=== PATIENT | male | born 1960 | race Caucasian/White ===

== ENCOUNTER 2016-11-20 11:40 | Emergency (ER) | payer OTHER ==
[2016-11-20] MEDS ORDERED: ASPIRIN 81 MG CHEW TABLET As Ordered ONE (12:26)
[2016-11-20 12:37] LABS: BASO # 0.1 K/mm3 (0.0-0.2); BASO % 0.7 % (0.0-1.0); EOS # 0.2 K/mm3 (0.0-0.50); EOS % 2.1 % (0.0-3.0); LARGE UNSTAINED CELL # 0.2 K/mm3 (0.0-0.4); LARGE UNSTAINED CELL % 2.3 % (0.0-4.0); LYMPH # 1.7 K/mm3 (1.5-4.5); LYMPH % 21.1 % (24.0-44.0); MEAN CORPUSCULAR HEMOGLOBIN 32.3 pg (27.0-33.0); MEAN CORPUSCULAR HGB CONC 34.8 g/dl (32.0-36.5); MONO # 0.4 K/mm3 (0.0-0.8); MONO % 4.4 % (0.0-5.0); NEUTROPHILS # 5.5 K/mm3 (1.8-7.7); NEUTROPHILS % 69.4 % (36.0-66.0); PLATELET COUNT, AUTOMATED 206 k/mm3 (150-450); RED CELL DISTRIBUTION WIDTH 13.1 % (11.5-14.5); WHITE BLOOD COUNT 7.9 K/mm3 (4.0-10.0)
[2016-11-20 12:48] LABS: ALBUMIN 4.3 GM/DL (3.2-5.2); ALKALINE PHOSPHATASE 54 U/L (45-117); ALT/SGPT 46 U/L (12-78); ANION GAP 10 MEQ/L (8-16); AST/SGOT 27 U/L (15-37); BILIRUBIN,DIRECT 0.2 MG/DL (0.0-0.2); BILIRUBIN,TOTAL 0.7 MG/DL (0.2-1.0); BLOOD UREA NITROGEN 12 MG/DL (7-18); CALCIUM LEVEL 9.2 MG/DL (8.5-10.1); CARBON DIOXIDE LEVEL 28 MEQ/L (21-32); CHLORIDE LEVEL 104 MEQ/L (98-107); CREATININE FOR GFR 0.85 MG/DL (0.70-1.30); GLOMERULAR FILTRATION RATE > 60.0 (>56); GLUCOSE, FASTING 104 MG/DL (70-105); POTASSIUM SERUM 3.8 MEQ/L (3.5-5.1); SODIUM LEVEL 142 MEQ/L (136-145); TOTAL PROTEIN 7.6 GM/DL (6.4-8.2)
--- NOTE | 2016-11-20 13:31 | REP ---
SINGLE VIEW CHEST: There is no evidence of acute infiltrate. No pleural effusion is seen. The heart is normal in size. The mediastinal silhouette is unremarkable. The visualized osseous structures are intact. IMPRESSION: No acute pulmonary disease. Signed by Luis A Valenzuela MD 11/20/2016 04:59 P
--- NOTE | 2016-11-20 17:56 | EDDOCDS ---
Physician Documentation [facility] Name: Ricardo Haines Age: 56 yrs Sex: Male : 1960 Arrival Date: 11/20/2016 Time: 11:40 Bed 17 Private MD: Disposition: 11/20 16:59 Critical Care: Critical care not applicable. pc Disposition: 11/20/16 17:24 Discharged to Home/Self Care. Impression: Chest pain, unspecified. - Condition is Stable. - Discharge Instructions: Nonspecific Chest Pain. - Medication Reconciliation, Local Pharmacy Hours form. - Follow up: Farhad Pickering; When: December 01 at 12:30pm. Call tomorrow for more pre-appointment information . - Problem is new. - Symptoms have improved. HPI: 12:41 This 56 yrs old Male presents to ER via Wheelchair with complaints of Chest pc Tightness. 12:41 The history is obtained from the patient. Symptoms began suddenly yesterday, He had pc multiple brief, 4-5 second episodes, of chest tightness yesterday, while at rest, with increase in frequency or severity while walking or with exertion. He believes the ongoing family stressors of both his father and his 's father being very ill, and the associated lack of sleep and worry, has caused the symptoms. He slept fine last night and took his dog for a 30 minute walk through the barber today and felt fine, but when he got back, he noted a heaviness in his chest, starting at 10:30am, and it has persisted until now, although lessening over time. He denies any other associated symptoms . The pain does not radiate. The symptoms are aggravated by nothing. The symptoms are alleviated by nothing. The patient's known risk factors for coronary artery disease include: smoking cigarettes, a family history of coronary artery disease. The patient has not experienced similar symptoms in the past. The patient has not recently seen a physician. Historical: - Allergies: no known allergies; - Home Meds: 1. aspirin 162 mg Oral TbEC 1 tab once daily (Last dose: 11/20/2016 08:00) 2. [place] Mclaughlin 500 mg oral cap daily 3. Magnesium Oxide Unknown Oral Unknown nightly 4. Vitamin C 1,000 mg Oral tab 1,000 mg daily - PMHx: none; - PSHx: left knee surgery; Laminectomy. lumbar; Appendectomy; - The history from nurses notes was reviewed: and I agree with what is documented. - Social history: Smoking status: Patient uses tobacco products, current some day smoker. No barriers to communication noted, The patient speaks fluent Maltese, Speaks appropriately for age. - Family history: Not pertinent, Pertinent for Father has/had cardiac disorder. - : The pt / caregiver states he / she is not on anticoagulants. Home medication list is obtained from the patient. - Hospitalizations: : No recent hospitalization is reported. - Exposure Risk Screening:: None identified. - Immunization history:: All immunizations up-to-date. - Social history:: the patient smokes cigarettes the patient drinks alcohol. ROS: 12:45 All systems are negative except as listed. The cardiovascular, respiratory, pc gastrointestinal and neurological components are also addressed in the HPI. Exam: 12:45 General Appearance: alert, no acute distress. pc 12:45 ENT: ear, nose and throat normal, pharynx normal. 12:45 Neck: supple, non-tender, no masses are appreciated. 12:45 Respiratory: no respiratory distress, normal breath sounds. 12:45 Cardiovascular: regular pulse rate, regular heart rhythm, normal heart sounds, equal and full pulses bilaterally. 12:45 Abdomen: soft, non-tender, no organomegaly, normal bowel sounds. 12:45 Skin: skin color is normal, warm, dry. 12:45 Extremities: The extremities have a grossly normal appearance, are non-tender, without acute ROM abnormalities. 12:45 Neuro: alert, oriented to person, place and time, cranial nerves normal as tested, no motor deficits, no sensory deficits. 12:45 Psych: normal mood. Vital Signs: 11:43 BP 204 / 109; Pulse 112; Resp 16; Temp 97.3(O); Pulse Ox 100% on R/A; Weight 86.18 kg / lr2 189.99 lbs (R); Height 5 ft. 10 in. (177.80 cm) (R); Pain 2/10; 12:08 BP 171 / 107 (auto/); bcj 12:08 Pulse Ox 97% ; bcj 12:12 BP 152 / 86 LA Sitting (man/); srm 12:15 BP 180 / 107 (auto/); bcj 12:15 Pulse 107 MON; Pulse Ox 96% ; bcj 12:30 BP 172 / 93 (auto/); bcj 12:30 Pulse 107 MON; Pulse Ox 98% ; bcj 12:45 BP 156 / 90 (auto/); bcj 12:45 Pulse 99 MON; Pulse Ox 97% ; bcj 13:00 BP 150 / 87 (auto/); bcj 13:00 Pulse 103 MON; bcj 13:15 BP 152 / 95 (auto/); bcj 13:15 Pulse 101 MON; Pulse Ox 95% ; bcj 13:30 BP 145 / 84 (auto/); bcj 13:30 Pulse Ox 97% ; bcj 13:45 BP 143 / 81 (auto/); bcj 13:45 Pulse Ox 99% ; bcj 14:00 BP 138 / 73 (auto/); bcj 14:00 Pulse Ox 95% ; bcj 17:46 BP 151 / 82; Pulse 93; Resp 16; Temp 97.9(O); Pulse Ox 98% on R/A; Pain 0/10; ld5 11:43 Body Mass Index 27.26 (86.18 kg, 177.80 cm) lr2 MDM: 11:46 ECG WITH READING ER PHYS+CARDIAG ordered. EDMS 12:24 Aspirin Chewable Tablet 324 mg PO once ordered. pc 12:24 Central Office Frame Wirer/Pulse Ox/q 30 min VS ordered. pc 12:24 IV Saline Lock ordered. pc 12:24 Rhythm Strip to chart ordered. pc 12:25 Basic Metabolic Profile Ordered. EDMS 12:25 CBC with Diff Ordered. EDMS 12:25 Cardiac Injury Profile Ordered. EDMS 12:25 Troponin Ordered. EDMS 12:26 portable chest Ordered. EDMS 12:32 LIPASE Ordered. EDMS 12:32 LIVER PROFILE Ordered. EDMS 12:32 REGULAR+DIET ordered. EDMS 12:45 Differential diagnosis: anxiety, gastroesophageal reflux disease (GERD), pancreatitis, pc unstable angina. Plan: labs, EKG, meds, imaging. The patient was medicated with aspirin in the Emergency Department. Test interpretation: EKG. 12:46 Financial registration complete. lg 13:03 CBC with Diff Reviewed. pc 13:03 Cardiac Injury Profile Reviewed. pc 13:03 Basic Metabolic Profile Reviewed. pc 13:03 Troponin Reviewed. pc 13:03 LIPASE Reviewed. pc 13:03 LIVER PROFILE Reviewed. pc 13:27 [facility] Payment Agreement was scanned into [employer] and attached to record. lg 14:08 Repeat EKG (put time details section) ordered. pc 14:13 Repeat EKG (put time details section) complete. deg 14:14 ECG WITH READING ER PHYS ordered. EDMS 14:36 Redraw CIP &Troponin (put time in details section) ordered. pc 15:12 CARDIAC MARKER PANEL Ordered. EDMS 16:30 CARDIAC MARKER PANEL Reviewed. pc 16:30 portable chest Reviewed. pc 16:32 Redraw CIP &Troponin (put time in details section) complete. bcj 16:39 Data reviewed: old medical records, vital signs, nurses notes, EKG(s), lab test pc results, all radiology studies and available results. Test interpretation: LAB - all labs as ordered have been reviewed, interpreted and considered in the overall management of the clinical presentation; X-RAY - interpreted by Radiologist and personally reviewed, 1 view chest no acute disease. 16:39 Test interpretation: EKG. pc 16:59 The patient has been re-examined and re-evaluated. The clinical presentation did not pc require any ED treatment or interventions. Physician consultation: Dr. Farhad Pickering was contacted at 17:00, regarding patient's condition, and advises the medications/treatment as provided. and agrees with the treatment provided and advises the discharge plans as outlined. Disposition: The historical points, examination findings, and any diagnostic results supporting the provided diagnosis, were discussed with the patient or legal guardian. The need for outpatient follow up with the provider listed on their discharge instructions was discussed. They were encouraged to return to [facility], or the nearest ED, if symptoms worsen/persist, or for any other questions/concerns. EC:45 Rate is 110 beats/min. Rhythm is regular, Sinus tachycardia. QRS [place] is Normal. IA pc interval is normal. QRS interval is normal. QT interval is normal. No Q waves. T waves are Normal. No ST changes noted. Clinical impression: Sinus tachycardia. 16:39 Rate is 71 beats/min. Rhythm is regular, Normal Sinus Rhythm. QRS [place] is Normal. IA pc interval is normal. QRS interval is normal. QT interval is normal. No Q waves. T waves are Normal. No ST changes noted. Clinical impression: Normal Sinus Rhythm. Administered Medications: 12:28 Drug: Aspirin 324 mg [aspirin 81 mg chewable tablet (4 tabs)] Route: PO; srm Signatures: Dispatcher [employer] EDMS Melvin Beavers MD MD pc Sheri Katz, Manga Artist Unit deg Nima Perez, RN RN Ally Ratliff, Rachel Parker lgRN Bryanna Porter RN The chart was reviewed and I authenticate all verbal orders and agree with the evaluation and treatment provided.Corrections: (The following items were deleted from the chart) 12:31 12:26 LIPASE+LAB ordered. EDMS EDMS 12:31 12:26 LIVER PROFILE+LAB ordered. EDMS EDMS 12:45 12:41 The patient's known risk factors for coronary artery disease include: a family pc history of coronary artery disease, pc 14:35 14:08 Redraw ABG (put time in details section) ordered. pc pc 14:38 14:14 ARTERIAL BLOOD GAS ordered. EDMS EDMS Attachments: 13:27 [facility] Payment Agreement lg MTDD
--- NOTE | 2016-11-20 17:56 | EDDOCDS ---
Nurse's Notes [facility] Name: Ricardo Haines Age: 56 yrs Sex: Male : 1960 Arrival Date: 11/20/2016 Time: 11:40 Bed 17 Private MD: Diagnosis: Chest pain, unspecified Presentation: 11/20 11:46 Presenting complaint: Patient states: chest tightness that started last night. Pt dsf states it went away last night and came back an hour ago. Pt denies nausea and SOB. 81 mg this AM. Adult Sepsis Screening: The patient does not have new or worsening altered mentation. Patient's respiratory rate is less than 22. Systolic blood pressure is greater than 100. Patient has a qSOFA score of 0- Negative Sepsis Screen. Suicide/Homicide risk assessment- the patient denies having any suicidal and/or homicidal ideations and does not present with any other emotional, behavioral or mental health complaints. 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 Transition of care: patient was not received from another setting of care. 11:46 Acuity: ROGERS Level 2 dsf 11:46 Method Of Arrival: Wheelchair dsf Triage Assessment: 11:49 General: Appears in no apparent distress, Behavior is appropriate for age, cooperative. dsf Pain: Location: chest Pain currently is 3 out of 10 on a pain scale. Pain does not radiate. Quality of pain is described as heavy, Pain began 1 day ago. Pt Declines HIV testing. Cardiovascular: Chest pain is described as Pain is 3 out of 10 on a pain scale. quality is heaviness, is located in right left anterior chest wall radiates Does not radiate. episodes are intermittent began 1 day ago. GI: Denies nausea. Historical: - Allergies: no known allergies; - Home Meds: 1. aspirin 162 mg Oral TbEC 1 tab once daily (Last dose: 11/20/2016 08:00) 2. [place] Mclaughlin 500 mg oral cap daily 3. Magnesium Oxide Unknown Oral Unknown nightly 4. Vitamin C 1,000 mg Oral tab 1,000 mg daily - PMHx: none; - PSHx: left knee surgery; Laminectomy. lumbar; Appendectomy; - The history from nurses notes was reviewed: and I agree with what is documented. - Social history: Smoking status: Patient uses tobacco products, current some day smoker. No barriers to communication noted, The patient speaks fluent Norwegian, Speaks appropriately for age. - Family history: Not pertinent, Pertinent for Father has/had cardiac disorder. - : The pt / caregiver states he / she is not on anticoagulants. Home medication list is obtained from the patient. - Hospitalizations: : No recent hospitalization is reported. - Exposure Risk Screening:: None identified. - Immunization history:: All immunizations up-to-date. - Social history:: the patient smokes cigarettes the patient drinks alcohol. Screenin:01 Screening information is obtained from the patient. Fall risk: No risks identified. bcj Assistance ADL's: requires no assistance with activities of daily living. Abuse/DV Screen: The patient / caregiver reports he/she is: not in a situation that causes fear, pain or injury. Nutritional screening: No deficits noted. Advance Directives: Currently, there is no health care proxy. home support is adequate. Assessment: 12:01 General: Appears in no apparent distress, comfortable, Behavior is cooperative. Pain: bcj Denies pain. Neurological: Level of Consciousness is awake, alert, Oriented to person, place, time. Cardiovascular: Rhythm is sinus rhythm Chest pain is described as mild, quality is squeezing, is located in left anterior chest wall radiates Does not radiate. episodes last > 5 minutes began 4 hours prior to arrival. Respiratory: Airway is patent Respiratory effort is even, unlabored, Respiratory pattern is regular. Derm: Skin is pink, warm & dry. 13:34 General: Appears in no apparent distress, comfortable, Behavior is cooperative. Pain: bcj Denies pain. Cardiovascular: Rhythm is sinus rhythm. Derm: Skin is pink, warm & dry. 14:23 General: Appears in no apparent distress, comfortable, Behavior is cooperative. Pain: bcj Denies pain. Cardiovascular: Rhythm is sinus rhythm. Derm: Skin is pink, warm & dry. 15:26 General: Appears in no apparent distress, comfortable, Behavior is cooperative. Pain: bcj Denies pain. Cardiovascular: Rhythm is regular. Derm: Skin is pink, warm & dry. 16:33 General: Appears in no apparent distress, comfortable, Behavior is cooperative. Pain: bcj Denies pain. Derm: Skin is pink, warm & dry. 17:54 General: Appears in no apparent distress, comfortable, Behavior is cooperative. Pain: bcj Denies pain. Cardiovascular: Rhythm is sinus rhythm. Derm: Skin is pink, warm & dry. Vital Signs: 11:43 BP 204 / 109; Pulse 112; Resp 16; Temp 97.3(O); Pulse Ox 100% on R/A; Weight 86.18 kg lr2 (R); Height 5 ft. 10 in. (177.80 cm) (R); Pain 2/10; 12:08 BP 171 / 107 (auto/); bcj 12:08 Pulse Ox 97% ; bcj 12:12 BP 152 / 86 LA Sitting (man/); srm 12:15 BP 180 / 107 (auto/); bcj 12:15 Pulse 107 MON; Pulse Ox 96% ; bcj 12:30 BP 172 / 93 (auto/); bcj 12:30 Pulse 107 MON; Pulse Ox 98% ; bcj 12:45 BP 156 / 90 (auto/); bcj 12:45 Pulse 99 MON; Pulse Ox 97% ; bcj 13:00 BP 150 / 87 (auto/); bcj 13:00 Pulse 103 MON; bcj 13:15 BP 152 / 95 (auto/); bcj 13:15 Pulse 101 MON; Pulse Ox 95% ; bcj 13:30 BP 145 / 84 (auto/); bcj 13:30 Pulse Ox 97% ; bcj 13:45 BP 143 / 81 (auto/); bcj 13:45 Pulse Ox 99% ; bcj 14:00 BP 138 / 73 (auto/); bcj 14:00 Pulse Ox 95% ; bcj 17:46 BP 151 / 82; Pulse 93; Resp 16; Temp 97.9(O); Pulse Ox 98% on R/A; Pain 0/10; ld5 11:43 Body Mass Index 27.26 (86.18 kg, 177.80 cm) lr2 Vitals: 11:42 Log In Time: November 20, 2016 at 11:40. lr2 11:42 RN notified that patient meets Red Flag criteria. lr2 12:01 Refer to monitor trend for complete vital signs trends. [facility] ED Course: 11:41 Patient visited by Deyanira Holden. lr2 11:41 Patient moved to Waiting lr2 11:43 Patient moved to Pre RCE lr2 11:44 Patient moved to 2 ead 11:47 Triage Initiated dsf 11:55 EKG done. (by ED staff). Reviewed by Sawyer Martel MD. rn1 12:01 No apparent distress. Resting quietly. Awaiting ED physician evaluation. bcj 12:01 The patient / caregiver is instructed regarding the plan of care and ED course. Patient bcsussy has correct armband on for positive identification. Placed in gown. Bed in low position. Call light in reach. Side rails up X2. bus monitor on. Pulse ox on. NIBP on. 12:01 Inserted saline lock: 20 gauge in left forearm. Labs drawn. (by ED staff). Sent per [facility] order to lab. 12:03 Patient visited by Nima Perez RN. bcj 12:10 Melvin Beavers MD is Attending Physician. pc 12:24 Patient visited by Melvin Beavers MD. pc 12:28 Patient visited by Bryanna Osorio RN. srm 12:28 Basic Metabolic Profile Sent. srm 12:28 CBC with Diff Sent. srm 12:28 Cardiac Injury Profile Sent. srm 12:28 Troponin Sent. srm 12:28 Portable x-ray done. srm 12:41 LIVER PROFILE Sent. bcj 12:41 LIPASE Sent. bcj 13:27 [facility] Payment Agreement was scanned into [employer] and attached to record. lg 13:35 Patient visited by Nima Perez RN. bcj 13:49 portable chest Returned. EDMS 14:20 [facility] 14:23 Patient visited by Nima Perez RN. bcj 14:23 IV is intact. bcj 14:24 Patient visited by Nima Perez RN. bcj 15:31 Patient visited by Nima Perez RN. bcj 16:30 EKG done. (by ED staff). Reviewed by Melvin Beavers MD. nb2 16:33 No apparent distress. Resting quietly. Awaiting disposition. bcj 16:33 IV. bcj 16:34 Patient visited by Nima Perez RN. bcj 16:38 Patient visited by Alberta Boo. nb2 17:06 portable chest Returned. EDMS 17:23 Farhad Pickering is Referral Physician. pc 17:46 Discontinued lock intact, bleeding controlled, pressure dressing applied, No ld5 redness/swelling at site. No procedures done that require assistance. 17:55 Patient visited by Nima Perez RN. bcj Administered Medications: 12:28 Drug: Aspirin 324 mg [aspirin 81 mg chewable tablet (4 tabs)] Route: PO; srm Output: 14:17 Urine: 325.00ml (Voided); Total: 325.00ml. srm Order Results: Lab Order: Basic Metabolic Profile; SPEC'M 11/20/16 12:22 Test: GLUCOSE, FASTING; Value: 104; Range: 70-105; Units: MG/DL; Status: F Test: BLOOD UREA NITROGEN; Value: 12; Range: 7-18; Units: MG/DL; Status: F Test: CREATININE FOR GFR; Value: 0.85; Range: 0.70-1.30; Units: MG/DL; Status: F Test: GLOMERULAR FILTRATION RATE; Value: > 60.0; Range: >56; Status: F Test: SODIUM LEVEL; Value: 142; Range: 136-145; Units: MEQ/L; Status: F Test: POTASSIUM SERUM; Value: 3.8; Range: 3.5-5.1; Units: MEQ/L; Status: F Test: CHLORIDE LEVEL; Value: 104; Range: 98-107; Units: MEQ/L; Status: F Test: CARBON DIOXIDE LEVEL; Value: 28; Range: 21-32; Units: MEQ/L; Status: F Test: ANION GAP; Value: 10; Range: 8-16; Units: MEQ/L; Status: F Test: CALCIUM LEVEL; Value: 9.2; Range: 8.5-10.1; Units: MG/DL; Status: F Test Note: ; Units are mL/min/1.73 m2 Chronic Kidney Disease Staging per NKF: Stage I & II GFR >=60 Normal to Mildly Decreased Stage III GFR 30-59 Moderately Decreased Stage IV GFR 15-29 Severely Decreased Stage V GFR <15 Very Little GFR Left ESRD GFR <15 on APPRENTICE PHOTOGRAPHER Lab Order: CBC with Diff; SPEC'M 11/20/16 12:22 Test: WHITE BLOOD COUNT; Value: 7.9; Range: 4.0-10.0; Units: K/mm3; Status: F Test: RED BLOOD COUNT; Value: 5.27; Range: 4.30-6.10; Units: M/mm3; Status: F Test: HEMOGLOBIN; Value: 17.1; Range: 14.0-18.0; Units: g/dl; Status: F Test: HEMATOCRIT; Value: 49.0; Range: 42.0-52.0; Units: %; Status: F Test: MEAN CORPUSCULAR VOLUME; Value: 93.0; Range: 80.0-96.0; Units: fl; Status: F Test: MEAN CORPUSCULAR HEMOGLOBIN; Value: 32.3; Range: 27.0-33.0; Units: pg; Status: F Test: MEAN CORPUSCULAR HGB CONC; Value: 34.8; Range: 32.0-36.5; Units: g/dl; Status: F Test: RED CELL DISTRIBUTION WIDTH; Value: 13.1; Range: 11.5-14.5; Units: %; Status: F Test: PLATELET COUNT, AUTOMATED; Value: 206; Range: 150-450; Units: k/mm3; Status: F Test: NEUTROPHILS %; Value: 69.4; Range: 36.0-66.0; Abnormal: Above high normal; Units: %; Status: F Test: LYMPH %; Value: 21.1; Range: 24.0-44.0; Abnormal: Below low normal; Units: %; Status: F Test: MONO %; Value: 4.4; Range: 0.0-5.0; Units: %; Status: F Test: EOS %; Value: 2.1; Range: 0.0-3.0; Units: %; Status: F Test: BASO %; Value: 0.7; Range: 0.0-1.0; Units: %; Status: F Test: LARGE UNSTAINED CELL %; Value: 2.3; Range: 0.0-4.0; Units: %; Status: F Test: NEUTROPHILS #; Value: 5.5; Range: 1.8-7.7; Units: K/mm3; Status: F Test: LYMPH #; Value: 1.7; Range: 1.5-4.5; Units: K/mm3; Status: F Test: MONO #; Value: 0.4; Range: 0.0-0.8; Units: K/mm3; Status: F Test: EOS #; Value: 0.2; Range: 0.0-0.50; Units: K/mm3; Status: F Test: BASO #; Value: 0.1; Range: 0.0-0.2; Units: K/mm3; Status: F Test: LARGE UNSTAINED CELL #; Value: 0.2; Range: 0.0-0.4; Units: K/mm3; Status: F Lab Order: Cardiac Injury Profile; [facility] 11/20/16 12:22 Test: CPK CREATINE PHOSPHOKINASE; Value: 189; Range: 39-308; Units: U/L; Status: F Test: CK-MB VALUE MASS; Value: 5.9; Range: 0.0-3.6; Abnormal: Above high normal; Units: NG/ML; Status: F Test: MB/CK RELATIVE INDEX; Value: 3.12; Range: < OR =4; Status: F Test Note: ; DIAGNOSIS CRITERIA MMB ng/ml Relative Index (RI) NON-AMI < or = 5 N/A VALENZUELA ZONE > 5 < or = 4 AMI > 5 > 4 Lab Order: Troponin; [facility] 11/20/16 12:22 Test: TROPONIN I; Value: < 0.02; Range: < 0.10; Units: NG/ML; Status: F Test Note: ; Troponin I Reference Interval for Primedic LOCI: 99th Percentile= 0.00-0.045 ng/ml Risk Stratification: <= 0.10 ng/ml Decreased Risk for Adverse Clinical Events. 0.10-1.50 ng/ml Increased Risk for Adverse Clinical Events. Evaluation of additional criterion and/or repeat testing in 2-6 hours is suggested to rule out myocardial damage. >= 1.50 ng/ml Indicative of Myocardial Injury. Lab Order: LIPASE; [facility] 11/20/16 12:22 Test: LIPASE; Value: 102; Range: 73-393; Units: U/L; Status: F Lab Order: LIVER PROFILE; [facility] 11/20/16 12:22 Test: AST/SGOT; Value: 27; Range: 15-37; Units: U/L; Status: F Test: ALT/SGPT; Value: 46; Range: 12-78; Units: U/L; Status: F Test: ALKALINE PHOSPHATASE; Value: 54; Range: 45-117; Units: U/L; Status: F Test: BILIRUBIN,TOTAL; Value: 0.7; Range: 0.2-1.0; Units: MG/DL; Status: F Test: BILIRUBIN,DIRECT; Value: 0.2; Range: 0.0-0.2; Units: MG/DL; Status: F Test: TOTAL PROTEIN; Value: 7.6; Range: 6.4-8.2; Units: GM/DL; Status: F Test: ALBUMIN; Value: 4.3; Range: 3.2-5.2; Units: GM/DL; Status: F Test: ALBUMIN/GLOBULIN RATIO; Value: 1.30; Range: 1.00-1.93; Status: F Lab Order: CARDIAC MARKER PANEL; SPEC'M 11/20/16 16:02 Test: CPK CREATINE PHOSPHOKINASE; Value: 153; Range: 39-308; Units: U/L; Status: F Test: CK-MB VALUE MASS; Value: 4.2; Range: 0.0-3.6; Abnormal: Above high normal; Units: NG/ML; Status: F Test: MB/CK RELATIVE INDEX; Value: 2.74; Range: < OR =4; Status: F Test: TROPONIN I; Value: < 0.02; Range: < 0.10; Units: NG/ML; Status: F Test Note: ; DIAGNOSIS CRITERIA MMB ng/ml Relative Index (RI) NON-AMI < or = 5 N/A VALENZUELA ZONE > 5 < or = 4 AMI > 5 > 4 Radiology Order: portable chest Test: portable chest REASON FOR EXAMINATION: Chest Pain; SINGLE VIEW CHEST:; ; There is no evidence of acute infiltrate.; ; No pleural effusion is seen.; ; The heart is normal in size.; ; The mediastinal silhouette is unremarkable.; ; The visualized osseous structures are intact.; ; IMPRESSION:; ; No acute pulmonary disease.; ; ; Signed by; Luis A Valenzuela MD 11/20/2016 04:59 P; Outcome: 17:24 Discharge ordered by Provider. 17:54 Discharge Assessment: patient administered narcotics - no. The following High Risk [facility] Discharge criteria are identified: None. Discharged to home ambulatory. Condition: stable. CT Study completed. Property :Personal belongings accompany Pt. 17:56 Patient left the ED. j Signatures: Dispatcher [employer] EDMelvin Javed MD MD pc Sleeman, Kacey, RN RN Nima Duncan, RN RN bcsussy Osorio, Bryanna, RN RN srm Juan C, Ally, Reg Reg slade Silva,Deyanira,RN RN [email or web address] Rachel Grullon RN RN dsf Dunaway, Emily,RN RN grant Stringer, Aly rn1 Alberta Boo2 Deyanira Holden lr2 Corrections: (The following items were deleted from the chart) : 12:28 LIVER PROFILE+LAB sent. srm EDMS 12:28 LIPASE+LAB sent. srm EDMS MTDD
--- NOTE | 2016-11-22 09:45 | ECGEPIP ---
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
--- NOTE | 2016-11-22 09:56 | ECGEPIP ---
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
--- NOTE | 2016-11-22 18:57 | EDDOCDS ---
Nurse's Notes [facility] Name: Aguila Arias Age: 56 yrs Sex: Male : 1960 Arrival Date: 11/20/2016 Time: 11:40 Bed 17 Private MD: Diagnosis: Chest pain, unspecified Presentation: 11/20 11:46 Presenting complaint: Patient states: chest tightness that started last night. Pt dsf states it went away last night and came back an hour ago. Pt denies nausea and SOB. 81 mg this AM. Adult Sepsis Screening: The patient does not have new or worsening altered mentation. Patient's respiratory rate is less than 22. Systolic blood pressure is greater than 100. Patient has a qSOFA score of 0- Negative Sepsis Screen. Suicide/Homicide risk assessment- the patient denies having any suicidal and/or homicidal ideations and does not present with any other emotional, behavioral or mental health complaints. Status: Patient is not a dietary services director or dependent. Transition of care: patient was not received from another setting of care. 11:46 Acuity: ROGERS Level 2 dsf 11:46 Method Of Arrival: Wheelchair dsf Triage Assessment: 11:49 General: Appears in no apparent distress, Behavior is appropriate for age, cooperative. dsf Pain: Location: chest Pain currently is 3 out of 10 on a pain scale. Pain does not radiate. Quality of pain is described as heavy, Pain began 1 day ago. Pt Declines HIV testing. Cardiovascular: Chest pain is described as Pain is 3 out of 10 on a pain scale. quality is heaviness, is located in right left anterior chest wall radiates Does not radiate. episodes are intermittent began 1 day ago. GI: Denies nausea. Historical: - Allergies: no known allergies; - Home Meds: 1. aspirin 162 mg Oral TbEC 1 tab once daily (Last dose: 11/20/2016 08:00) 2. Clyde Mclaughlin 500 mg oral cap daily 3. Magnesium Oxide Unknown Oral Unknown nightly 4. Vitamin C 1,000 mg Oral tab 1,000 mg daily - PMHx: none; - PSHx: left knee surgery; Laminectomy. lumbar; Appendectomy; - The history from nurses notes was reviewed: and I agree with what is documented. - Social history: Smoking status: Patient uses tobacco products, current some day smoker. No barriers to communication noted, The patient speaks fluent French, Speaks appropriately for age. - Family history: Not pertinent, Pertinent for Father has/had cardiac disorder. - : The pt / caregiver states he / she is not on anticoagulants. Home medication list is obtained from the patient. - Hospitalizations: : No recent hospitalization is reported. - Exposure Risk Screening:: None identified. - Immunization history:: All immunizations up-to-date. - Social history:: the patient smokes cigarettes the patient drinks alcohol. Screenin:01 Screening information is obtained from the patient. Fall risk: No risks identified. bcj Assistance ADL's: requires no assistance with activities of daily living. Abuse/DV Screen: The patient / caregiver reports he/she is: not in a situation that causes fear, pain or injury. Nutritional screening: No deficits noted. Advance Directives: Currently, there is no health care proxy. home support is adequate. Assessment: 12:01 General: Appears in no apparent distress, comfortable, Behavior is cooperative. Pain: bcj Denies pain. Neurological: Level of Consciousness is awake, alert, Oriented to person, place, time. Cardiovascular: Rhythm is sinus rhythm Chest pain is described as mild, quality is squeezing, is located in left anterior chest wall radiates Does not radiate. episodes last > 5 minutes began 4 hours prior to arrival. Respiratory: Airway is patent Respiratory effort is even, unlabored, Respiratory pattern is regular. Derm: Skin is pink, warm & dry. 13:34 General: Appears in no apparent distress, comfortable, Behavior is cooperative. Pain: bcj Denies pain. Cardiovascular: Rhythm is sinus rhythm. Derm: Skin is pink, warm & dry. 14:23 General: Appears in no apparent distress, comfortable, Behavior is cooperative. Pain: bcj Denies pain. Cardiovascular: Rhythm is sinus rhythm. Derm: Skin is pink, warm & dry. 15:26 General: Appears in no apparent distress, comfortable, Behavior is cooperative. Pain: bcj Denies pain. Cardiovascular: Rhythm is regular. Derm: Skin is pink, warm & dry. 16:33 General: Appears in no apparent distress, comfortable, Behavior is cooperative. Pain: bcj Denies pain. Derm: Skin is pink, warm & dry. 17:54 General: Appears in no apparent distress, comfortable, Behavior is cooperative. Pain: bcj Denies pain. Cardiovascular: Rhythm is sinus rhythm. Derm: Skin is pink, warm & dry. Vital Signs: 11:43 BP 204 / 109; Pulse 112; Resp 16; Temp 97.3(O); Pulse Ox 100% on R/A; Weight 86.18 kg lr2 (R); Height 5 ft. 10 in. (177.80 cm) (R); Pain 2/10; 12:08 BP 171 / 107 (auto/); bcj 12:08 Pulse Ox 97% ; bcj 12:12 BP 152 / 86 LA Sitting (man/); srm 12:15 BP 180 / 107 (auto/); bcj 12:15 Pulse 107 MON; Pulse Ox 96% ; bcj 12:30 BP 172 / 93 (auto/); bcj 12:30 Pulse 107 MON; Pulse Ox 98% ; bcj 12:45 BP 156 / 90 (auto/); bcj 12:45 Pulse 99 MON; Pulse Ox 97% ; bcj 13:00 BP 150 / 87 (auto/); bcj 13:00 Pulse 103 MON; bcj 13:15 BP 152 / 95 (auto/); bcj 13:15 Pulse 101 MON; Pulse Ox 95% ; bcj 13:30 BP 145 / 84 (auto/); bcj 13:30 Pulse Ox 97% ; bcj 13:45 BP 143 / 81 (auto/); bcj 13:45 Pulse Ox 99% ; bcj 14:00 BP 138 / 73 (auto/); bcj 14:00 Pulse Ox 95% ; bcj 17:46 BP 151 / 82; Pulse 93; Resp 16; Temp 97.9(O); Pulse Ox 98% on R/A; Pain 0/10; ld5 11:43 Body Mass Index 27.26 (86.18 kg, 177.80 cm) lr2 Vitals: 11:42 Log In Time: November 20, 2016 at 11:40. lr2 11:42 RN notified that patient meets Red Flag criteria. lr2 12:01 Refer to monitor trend for complete vital signs trends. [facility] ED Course: 11:41 Patient visited by Deyanira Holden. lr2 11:41 Patient moved to Waiting lr2 11:43 Patient moved to Pre RCE lr2 11:44 Patient moved to 2 ead 11:47 Triage Initiated dsf 11:55 EKG done. (by ED staff). Reviewed by Sawyer Martel MD. rn1 12:01 No apparent distress. Resting quietly. Awaiting ED physician evaluation. bcj 12:01 The patient / caregiver is instructed regarding the plan of care and ED course. Patient j has correct armband on for positive identification. Placed in gown. Bed in low position. Call light in reach. Side rails up X2. senior integration developer on. Pulse ox on. NIBP on. 12:01 Inserted saline lock: 20 gauge in left forearm. Labs drawn. (by ED staff). Sent per [facility] order to lab. 12:03 Patient visited by Nima Perez RN. bcj 12:10 Melvin Beavers MD is Attending Physician. pc 12:24 Patient visited by Melvin Beavers MD. pc 12:28 Patient visited by Bryanna Osorio RN. srm 12:28 Basic Metabolic Profile Sent. srm 12:28 CBC with Diff Sent. srm 12:28 Cardiac Injury Profile Sent. srm 12:28 Troponin Sent. srm 12:28 Portable x-ray done. srm 12:41 LIVER PROFILE Sent. bcj 12:41 LIPASE Sent. bcj 13:27 [facility] Payment Agreement was scanned into [email or web address] and attached to record. lg 13:35 Patient visited by Nima Perez RN. bcj 13:49 portable chest Returned. EDMS 14:20 Patient moved to [facility] 14:23 Patient visited by Nima Perez RN. bcj 14:23 IV is intact. bcj 14:24 Patient visited by Nima Perez RN. bcj 15:31 Patient visited by Nima Perez RN. bcj 16:30 EKG done. (by ED staff). Reviewed by Melvin Beavers MD. nb2 16:33 No apparent distress. Resting quietly. Awaiting disposition. bcj 16:33 IV. bcj 16:34 Patient visited by Nima Perez RN. bcj 16:38 Patient visited by Alberta Boo. nb2 17:06 portable chest Returned. EDMS 17:23 Farhad Pickering is Referral Physician. pc 17:46 Discontinued lock intact, bleeding controlled, pressure dressing applied, No ld5 redness/swelling at site. No procedures done that require assistance. 17:55 Patient visited by Nima Perez RN. bcj 11/22 10:05 EKG-ADULT Returned. EDMS 10:05 ECG WITH READING ER PHYS Returned. EDMS Administered Medications: 11/20 12:28 Drug: Aspirin 324 mg [aspirin 81 mg chewable tablet (4 tabs)] Route: PO; srm Output: 14:17 Urine: 325.00ml (Voided); Total: 325.00ml. srm Order Results: Lab Order: Basic Metabolic Profile; SPEC'M 11/20/16 12:22 Test: GLUCOSE, FASTING; Value: 104; Range: 70-105; Units: MG/DL; Status: F Test: BLOOD UREA NITROGEN; Value: 12; Range: 7-18; Units: MG/DL; Status: F Test: CREATININE FOR GFR; Value: 0.85; Range: 0.70-1.30; Units: MG/DL; Status: F Test: GLOMERULAR FILTRATION RATE; Value: > 60.0; Range: >56; Status: F Test: SODIUM LEVEL; Value: 142; Range: 136-145; Units: MEQ/L; Status: F Test: POTASSIUM SERUM; Value: 3.8; Range: 3.5-5.1; Units: MEQ/L; Status: F Test: CHLORIDE LEVEL; Value: 104; Range: 98-107; Units: MEQ/L; Status: F Test: CARBON DIOXIDE LEVEL; Value: 28; Range: 21-32; Units: MEQ/L; Status: F Test: ANION GAP; Value: 10; Range: 8-16; Units: MEQ/L; Status: F Test: CALCIUM LEVEL; Value: 9.2; Range: 8.5-10.1; Units: MG/DL; Status: F Test Note: ; Units are mL/min/1.73 m2 Chronic Kidney Disease Staging per NKF: Stage I & II GFR >=60 Normal to Mildly Decreased Stage III GFR 30-59 Moderately Decreased Stage IV GFR 15-29 Severely Decreased Stage V GFR <15 Very Little GFR Left ESRD GFR <15 on COPY HOLDER Lab Order: CBC with Diff; SPEC'M 11/20/16 12:22 Test: WHITE BLOOD COUNT; Value: 7.9; Range: 4.0-10.0; Units: K/mm3; Status: F Test: RED BLOOD COUNT; Value: 5.27; Range: 4.30-6.10; Units: M/mm3; Status: F Test: HEMOGLOBIN; Value: 17.1; Range: 14.0-18.0; Units: g/dl; Status: F Test: HEMATOCRIT; Value: 49.0; Range: 42.0-52.0; Units: %; Status: F Test: MEAN CORPUSCULAR VOLUME; Value: 93.0; Range: 80.0-96.0; Units: fl; Status: F Test: MEAN CORPUSCULAR HEMOGLOBIN; Value: 32.3; Range: 27.0-33.0; Units: pg; Status: F Test: MEAN CORPUSCULAR HGB CONC; Value: 34.8; Range: 32.0-36.5; Units: g/dl; Status: F Test: RED CELL DISTRIBUTION WIDTH; Value: 13.1; Range: 11.5-14.5; Units: %; Status: F Test: PLATELET COUNT, AUTOMATED; Value: 206; Range: 150-450; Units: k/mm3; Status: F Test: NEUTROPHILS %; Value: 69.4; Range: 36.0-66.0; Abnormal: Above high normal; Units: %; Status: F Test: LYMPH %; Value: 21.1; Range: 24.0-44.0; Abnormal: Below low normal; Units: %; Status: F Test: MONO %; Value: 4.4; Range: 0.0-5.0; Units: %; Status: F Test: EOS %; Value: 2.1; Range: 0.0-3.0; Units: %; Status: F Test: BASO %; Value: 0.7; Range: 0.0-1.0; Units: %; Status: F Test: LARGE UNSTAINED CELL %; Value: 2.3; Range: 0.0-4.0; Units: %; Status: F Test: NEUTROPHILS #; Value: 5.5; Range: 1.8-7.7; Units: K/mm3; Status: F Test: LYMPH #; Value: 1.7; Range: 1.5-4.5; Units: K/mm3; Status: F Test: MONO #; Value: 0.4; Range: 0.0-0.8; Units: K/mm3; Status: F Test: EOS #; Value: 0.2; Range: 0.0-0.50; Units: K/mm3; Status: F Test: BASO #; Value: 0.1; Range: 0.0-0.2; Units: K/mm3; Status: F Test: LARGE UNSTAINED CELL #; Value: 0.2; Range: 0.0-0.4; Units: K/mm3; Status: F Lab Order: Cardiac Injury Profile; [facility] 11/20/16 12:22 Test: CPK CREATINE PHOSPHOKINASE; Value: 189; Range: 39-308; Units: U/L; Status: F Test: CK-MB VALUE MASS; Value: 5.9; Range: 0.0-3.6; Abnormal: Above high normal; Units: NG/ML; Status: F Test: MB/CK RELATIVE INDEX; Value: 3.12; Range: < OR =4; Status: F Test Note: ; DIAGNOSIS CRITERIA MMB ng/ml Relative Index (RI) NON-AMI < or = 5 N/A VALENZUELA ZONE > 5 < or = 4 AMI > 5 > 4 Lab Order: Troponin; [facility] 11/20/16 12:22 Test: TROPONIN I; Value: < 0.02; Range: < 0.10; Units: NG/ML; Status: F Test Note: ; Troponin I Reference Interval for [place] biomass LOCI: 99th Percentile= 0.00-0.045 ng/ml Risk Stratification: <= 0.10 ng/ml Decreased Risk for Adverse Clinical Events. 0.10-1.50 ng/ml Increased Risk for Adverse Clinical Events. Evaluation of additional criterion and/or repeat testing in 2-6 hours is suggested to rule out myocardial damage. >= 1.50 ng/ml Indicative of Myocardial Injury. Lab Order: LIPASE; [facility] 11/20/16 12:22 Test: LIPASE; Value: 102; Range: 73-393; Units: U/L; Status: F Lab Order: LIVER PROFILE; [facility] 11/20/16 12:22 Test: AST/SGOT; Value: 27; Range: 15-37; Units: U/L; Status: F Test: ALT/SGPT; Value: 46; Range: 12-78; Units: U/L; Status: F Test: ALKALINE PHOSPHATASE; Value: 54; Range: 45-117; Units: U/L; Status: F Test: BILIRUBIN,TOTAL; Value: 0.7; Range: 0.2-1.0; Units: MG/DL; Status: F Test: BILIRUBIN,DIRECT; Value: 0.2; Range: 0.0-0.2; Units: MG/DL; Status: F Test: TOTAL PROTEIN; Value: 7.6; Range: 6.4-8.2; Units: GM/DL; Status: F Test: ALBUMIN; Value: 4.3; Range: 3.2-5.2; Units: GM/DL; Status: F Test: ALBUMIN/GLOBULIN RATIO; Value: 1.30; Range: 1.00-1.93; Status: F Lab Order: CARDIAC MARKER PANEL; [facility]' 11/20/16 16:02 Test: CPK CREATINE PHOSPHOKINASE; Value: 153; Range: 39-308; Units: U/L; Status: F Test: CK-MB VALUE MASS; Value: 4.2; Range: 0.0-3.6; Abnormal: Above high normal; Units: NG/ML; Status: F Test: MB/CK RELATIVE INDEX; Value: 2.74; Range: < OR =4; Status: F Test: TROPONIN I; Value: < 0.02; Range: < 0.10; Units: NG/ML; Status: F Test Note: ; DIAGNOSIS CRITERIA MMB ng/ml Relative Index (RI) NON-AMI < or = 5 N/A VALENZUELA ZONE > 5 < or = 4 AMI > 5 > 4 Radiology Order: EKG-ADULT Test: EKG-ADULT REASON FOR EXAMINATION: Chest Pain; Stationary ECG Study; [facility] - ED; ; Test Date: 2016-11-20; Pat Name: AGUILA ARIAS Department:; Room: -; Gender: M 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: nb; : 1960 Requested By: SAWYER Ojeda; Order Number: [id number] Reading MD: Melvin Beavers; Measurements; Intervals [place]; Rate: 110 P: 54; NM: 168 QRS: -8; QRSD: 81 T: 67; QT: 324; QTc: 438; Interpretive Statements; SINUS TACHYCARDIA; NONSPECIFIC T-WAVE ABNORMALITY; ; Electronically Signed On 3-1-2017 9:45:06 EST by Melvin Beavers; Radiology Order: portable chest Test: portable chest REASON FOR EXAMINATION: Chest Pain; SINGLE VIEW CHEST:; ; There is no evidence of acute infiltrate.; ; No pleural effusion is seen.; ; The heart is normal in size.; ; The mediastinal silhouette is unremarkable.; ; The visualized osseous structures are intact.; ; IMPRESSION:; ; No acute pulmonary disease.; ; ; Signed by; Luis A Valenzuela MD 11/20/2016 04:59 P; Radiology Order: ECG WITH READING ER PHYS Test: ECG WITH READING ER PHYS REASON FOR EXAMINATION: CHEST PAIN; Stationary ECG Study; [facility] - ED; ; Test Date: 2016-11-20; Pat Name: AGUILA ARIAS Department:; Room: -; Gender: M 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: merlin; : 1960 Requested By: Melvin Fischer; Order Number: [id number] Reading MD: Melvin Beavers; Measurements; Intervals [place]; Rate: 71 P: 55; NM: 161 QRS: 0; QRSD: 85 T: 40; QT: 358; QTc: 391; Interpretive Statements; SINUS RHYTHM WITH SINUS ARRHYTHMIA; NONSPECIFIC T-WAVE ABNORMALITY; ; Electronically Signed On 11-22-2016 9:56:25 EST by Melvin Beavers; Outcome: 17:24 Discharge ordered by Provider. 17:54 Discharge Assessment: patient administered narcotics - no. The following High Risk [facility] Discharge criteria are identified: None. Discharged to home ambulatory. Condition: stable. CT Study completed. Property :Personal belongings accompany Pt. 17:56 Patient left the ED. j Signatures: Dispatcher [employer] EDMN Melvin Beavers MD MD pc Sleeman, Kacey, RN RN kcs Johnson, Bruce, RN RN Bryanna Allen RN RN [facility] Ally Irizarry, Deyanira Carter lg,Rachel Mendoza RN, RN RN dsf Dunaway, Emily, RN RN ead Newman, Robert rn1 Alberta Boo2 Deyanira Holden lr2 Corrections: (The following items were deleted from the chart) 12: 12:28 LIVER PROFILE+LAB sent. [facility] EDMS 12:31 12:28 LIPASE+LAB sent. [facility] EDMS Chart Complete MTDD
--- NOTE | 2016-11-22 18:57 | EDDOCDS ---
Physician Documentation [facility] Name: Ricardo Haines Age: 56 yrs Sex: Male : 1960 Arrival Date: 11/20/2016 Time: 11:40 Bed 17 Private MD: Disposition: 11/20 16:59 Critical Care: Critical care not applicable. pc Disposition: 11/20/16 17:24 Discharged to Home/Self Care. Impression: Chest pain, unspecified. - Condition is Stable. - Discharge Instructions: Nonspecific Chest Pain. - Medication Reconciliation, Local Pharmacy Hours form. - Follow up: Farhad Pickering; When: December 01 at 12:30pm. Call tomorrow for more pre-appointment information . - Problem is new. - Symptoms have improved. HPI: 12:41 This 56 yrs old Male presents to ER via Wheelchair with complaints of Chest pc Tightness. 12:41 The history is obtained from the patient. Symptoms began suddenly yesterday, He had pc multiple brief, 4-5 second episodes, of chest tightness yesterday, while at rest, with increase in frequency or severity while walking or with exertion. He believes the ongoing family stressors of both his father and his 's father being very ill, and the associated lack of sleep and worry, has caused the symptoms. He slept fine last night and took his dog for a 30 minute walk through the barber today and felt fine, but when he got back, he noted a heaviness in his chest, starting at 10:30am, and it has persisted until now, although lessening over time. He denies any other associated symptoms . The pain does not radiate. The symptoms are aggravated by nothing. The symptoms are alleviated by nothing. The patient's known risk factors for coronary artery disease include: smoking cigarettes, a family history of coronary artery disease. The patient has not experienced similar symptoms in the past. The patient has not recently seen a physician. Historical: - Allergies: no known allergies; - Home Meds: 1. aspirin 162 mg Oral TbEC 1 tab once daily (Last dose: 11/20/2016 08:00) 2. [place] Mclaughlin 500 mg oral cap daily 3. Magnesium Oxide Unknown Oral Unknown nightly 4. Vitamin C 1,000 mg Oral tab 1,000 mg daily - PMHx: none; - PSHx: left knee surgery; Laminectomy. lumbar; Appendectomy; - The history from nurses notes was reviewed: and I agree with what is documented. - Social history: Smoking status: Patient uses tobacco products, current some day smoker. No barriers to communication noted, The patient speaks fluent Iranian, Speaks appropriately for age. - Family history: Not pertinent, Pertinent for Father has/had cardiac disorder. - : The pt / caregiver states he / she is not on anticoagulants. Home medication list is obtained from the patient. - Hospitalizations: : No recent hospitalization is reported. - Exposure Risk Screening:: None identified. - Immunization history:: All immunizations up-to-date. - Social history:: the patient smokes cigarettes the patient drinks alcohol. ROS: 12:45 All systems are negative except as listed. The cardiovascular, respiratory, pc gastrointestinal and neurological components are also addressed in the HPI. Exam: 12:45 General Appearance: alert, no acute distress. pc 12:45 ENT: ear, nose and throat normal, pharynx normal. 12:45 Neck: supple, non-tender, no masses are appreciated. 12:45 Respiratory: no respiratory distress, normal breath sounds. 12:45 Cardiovascular: regular pulse rate, regular heart rhythm, normal heart sounds, equal and full pulses bilaterally. 12:45 Abdomen: soft, non-tender, no organomegaly, normal bowel sounds. 12:45 Skin: skin color is normal, warm, dry. 12:45 Extremities: The extremities have a grossly normal appearance, are non-tender, without acute ROM abnormalities. 12:45 Neuro: alert, oriented to person, place and time, cranial nerves normal as tested, no motor deficits, no sensory deficits. 12:45 Psych: normal mood. Vital Signs: 11:43 BP 204 / 109; Pulse 112; Resp 16; Temp 97.3(O); Pulse Ox 100% on R/A; Weight 86.18 kg / lr2 189.99 lbs (R); Height 5 ft. 10 in. (177.80 cm) (R); Pain 2/10; 12:08 BP 171 / 107 (auto/); bcj 12:08 Pulse Ox 97% ; bcj 12:12 BP 152 / 86 LA Sitting (man/); srm 12:15 BP 180 / 107 (auto/); bcj 12:15 Pulse 107 MON; Pulse Ox 96% ; bcj 12:30 BP 172 / 93 (auto/); bcj 12:30 Pulse 107 MON; Pulse Ox 98% ; bcj 12:45 BP 156 / 90 (auto/); bcj 12:45 Pulse 99 MON; Pulse Ox 97% ; bcj 13:00 BP 150 / 87 (auto/); bcj 13:00 Pulse 103 MON; bcj 13:15 BP 152 / 95 (auto/); bcj 13:15 Pulse 101 MON; Pulse Ox 95% ; bcj 13:30 BP 145 / 84 (auto/); bcj 13:30 Pulse Ox 97% ; bcj 13:45 BP 143 / 81 (auto/); bcj 13:45 Pulse Ox 99% ; bcj 14:00 BP 138 / 73 (auto/); bcj 14:00 Pulse Ox 95% ; bcj 17:46 BP 151 / 82; Pulse 93; Resp 16; Temp 97.9(O); Pulse Ox 98% on R/A; Pain 0/10; ld5 11:43 Body Mass Index 27.26 (86.18 kg, 177.80 cm) lr2 MDM: 11:46 ECG WITH READING ER PHYS+CARDIAG ordered. EDMS 12:24 Aspirin Chewable Tablet 324 mg PO once ordered. pc 12:24 Cna Per Diem/Pulse Ox/q 30 min VS ordered. pc 12:24 IV Saline Lock ordered. pc 12:24 Rhythm Strip to chart ordered. pc 12:25 Basic Metabolic Profile Ordered. EDMS 12:25 CBC with Diff Ordered. EDMS 12:25 Cardiac Injury Profile Ordered. EDMS 12:25 Troponin Ordered. EDMS 12:26 portable chest Ordered. EDMS 12:32 LIPASE Ordered. EDMS 12:32 LIVER PROFILE Ordered. EDMS 12:32 REGULAR+DIET ordered. EDMS 12:45 Differential diagnosis: anxiety, gastroesophageal reflux disease (GERD), pancreatitis, pc unstable angina. Plan: labs, EKG, meds, imaging. The patient was medicated with aspirin in the Emergency Department. Test interpretation: EKG. 12:46 Financial registration complete. lg 13:03 CBC with Diff Reviewed. pc 13:03 Cardiac Injury Profile Reviewed. pc 13:03 Basic Metabolic Profile Reviewed. pc 13:03 Troponin Reviewed. pc 13:03 LIPASE Reviewed. pc 13:03 LIVER PROFILE Reviewed. pc 13:27 [facility] Payment Agreement was scanned into [employer] and attached to record. lg 14:08 Repeat EKG (put time details section) ordered. pc 14:13 Repeat EKG (put time details section) complete. deg 14:14 ECG WITH READING ER PHYS ordered. EDMS 14:36 Redraw CIP &Troponin (put time in details section) ordered. pc 15:12 CARDIAC MARKER PANEL Ordered. EDMS 16:30 CARDIAC MARKER PANEL Reviewed. pc 16:30 portable chest Reviewed. pc 16:32 Redraw CIP &Troponin (put time in details section) complete. bcj 16:39 Data reviewed: old medical records, vital signs, nurses notes, EKG(s), lab test pc results, all radiology studies and available results. Test interpretation: LAB - all labs as ordered have been reviewed, interpreted and considered in the overall management of the clinical presentation; X-RAY - interpreted by Radiologist and personally reviewed, 1 view chest no acute disease. 16:39 Test interpretation: EKG. pc 16:59 The patient has been re-examined and re-evaluated. The clinical presentation did not pc require any ED treatment or interventions. Physician consultation: Dr. Farhad Pickering was contacted at 17:00, regarding patient's condition, and advises the medications/treatment as provided. and agrees with the treatment provided and advises the discharge plans as outlined. Disposition: The historical points, examination findings, and any diagnostic results supporting the provided diagnosis, were discussed with the patient or legal guardian. The need for outpatient follow up with the provider listed on their discharge instructions was discussed. They were encouraged to return to [facility], or the nearest ED, if symptoms worsen/persist, or for any other questions/concerns. EC:45 Rate is 110 beats/min. Rhythm is regular, Sinus tachycardia. QRS [place] is Normal. [place] pc interval is normal. QRS interval is normal. QT interval is normal. No Q waves. T waves are Normal. No ST changes noted. Clinical impression: Sinus tachycardia. 16:39 Rate is 71 beats/min. Rhythm is regular, Normal Sinus Rhythm. QRS [place] is Normal. MA pc interval is normal. QRS interval is normal. QT interval is normal. No Q waves. T waves are Normal. No ST changes noted. Clinical impression: Normal Sinus Rhythm. Administered Medications: 12:28 Drug: Aspirin 324 mg [aspirin 81 mg chewable tablet (4 tabs)] Route: PO; srm Signatures: Dispatcher [employer] EDMelvin Javed MD MD pc Sheri Katz, Malted Milk Masher Unit deg Nima Perez, RN RN Ally Ratliff, Tato Reg Rachel GrimaldoRN RN Bryanna Francis RN The chart was reviewed and I authenticate all verbal orders and agree with the evaluation and treatment provided.Corrections: (The following items were deleted from the chart) 12:31 12:26 LIPASE+LAB ordered. EDMS EDMS 12:31 12:26 LIVER PROFILE+LAB ordered. EDMS EDMS 12:45 12:41 The patient's known risk factors for coronary artery disease include: a family pc history of coronary artery disease, pc 14:35 14:08 Redraw ABG (put time in details section) ordered. pc pc 14:38 14:14 ARTERIAL BLOOD GAS ordered. EDMS EDMS Attachments: 13:27 [facility] [place] lg Chart Complete MTDD
--- NOTE | 2016-11-22 18:58 | EDDOCDS ---
Physician Documentation [facility] Name: Ricardo Haines Age: 56 yrs Sex: Male : 1960 Arrival Date: 11/20/2016 Time: 11:40 Bed 17 Private MD: Disposition: 11/20 16:59 Critical Care: Critical care not applicable. pc Disposition: 11/20/16 17:24 Discharged to Home/Self Care. Impression: Chest pain, unspecified. - Condition is Stable. - Discharge Instructions: Nonspecific Chest Pain. - Medication Reconciliation, Local Pharmacy Hours form. - Follow up: Farhad Pickering; When: December 01 at 12:30pm. Call tomorrow for more pre-appointment information . - Problem is new. - Symptoms have improved. HPI: 12:41 This 56 yrs old Male presents to ER via Wheelchair with complaints of Chest pc Tightness. 12:41 The history is obtained from the patient. Symptoms began suddenly yesterday, He had pc multiple brief, 4-5 second episodes, of chest tightness yesterday, while at rest, with increase in frequency or severity while walking or with exertion. He believes the ongoing family stressors of both his father and his 's father being very ill, and the associated lack of sleep and worry, has caused the symptoms. He slept fine last night and took his dog for a 30 minute walk through the barber today and felt fine, but when he got back, he noted a heaviness in his chest, starting at 10:30am, and it has persisted until now, although lessening over time. He denies any other associated symptoms . The pain does not radiate. The symptoms are aggravated by nothing. The symptoms are alleviated by nothing. The patient's known risk factors for coronary artery disease include: smoking cigarettes, a family history of coronary artery disease. The patient has not experienced similar symptoms in the past. The patient has not recently seen a physician. Historical: - Allergies: no known allergies; - Home Meds: 1. aspirin 162 mg Oral TbEC 1 tab once daily (Last dose: 11/20/2016 08:00) 2. [place] Mclaughlin 500 mg oral cap daily 3. Magnesium Oxide Unknown Oral Unknown nightly 4. Vitamin C 1,000 mg Oral tab 1,000 mg daily - PMHx: none; - PSHx: left knee surgery; Laminectomy. lumbar; Appendectomy; - The history from nurses notes was reviewed: and I agree with what is documented. - Social history: Smoking status: Patient uses tobacco products, current some day smoker. No barriers to communication noted, The patient speaks fluent Cuban, Speaks appropriately for age. - Family history: Not pertinent, Pertinent for Father has/had cardiac disorder. - : The pt / caregiver states he / she is not on anticoagulants. Home medication list is obtained from the patient. - Hospitalizations: : No recent hospitalization is reported. - Exposure Risk Screening:: None identified. - Immunization history:: All immunizations up-to-date. - Social history:: the patient smokes cigarettes the patient drinks alcohol. ROS: 12:45 All systems are negative except as listed. The cardiovascular, respiratory, pc gastrointestinal and neurological components are also addressed in the HPI. Exam: 12:45 General Appearance: alert, no acute distress. pc 12:45 ENT: ear, nose and throat normal, pharynx normal. 12:45 Neck: supple, non-tender, no masses are appreciated. 12:45 Respiratory: no respiratory distress, normal breath sounds. 12:45 Cardiovascular: regular pulse rate, regular heart rhythm, normal heart sounds, equal and full pulses bilaterally. 12:45 Abdomen: soft, non-tender, no organomegaly, normal bowel sounds. 12:45 Skin: skin color is normal, warm, dry. 12:45 Extremities: The extremities have a grossly normal appearance, are non-tender, without acute ROM abnormalities. 12:45 Neuro: alert, oriented to person, place and time, cranial nerves normal as tested, no motor deficits, no sensory deficits. 12:45 Psych: normal mood. Vital Signs: 11:43 BP 204 / 109; Pulse 112; Resp 16; Temp 97.3(O); Pulse Ox 100% on R/A; Weight 86.18 kg / lr2 189.99 lbs (R); Height 5 ft. 10 in. (177.80 cm) (R); Pain 2/10; 12:08 BP 171 / 107 (auto/); bcj 12:08 Pulse Ox 97% ; bcj 12:12 BP 152 / 86 LA Sitting (man/); srm 12:15 BP 180 / 107 (auto/); bcj 12:15 Pulse 107 MON; Pulse Ox 96% ; bcj 12:30 BP 172 / 93 (auto/); bcj 12:30 Pulse 107 MON; Pulse Ox 98% ; bcj 12:45 BP 156 / 90 (auto/); bcj 12:45 Pulse 99 MON; Pulse Ox 97% ; bcj 13:00 BP 150 / 87 (auto/); bcj 13:00 Pulse 103 MON; bcj 13:15 BP 152 / 95 (auto/); bcj 13:15 Pulse 101 MON; Pulse Ox 95% ; bcj 13:30 BP 145 / 84 (auto/); bcj 13:30 Pulse Ox 97% ; bcj 13:45 BP 143 / 81 (auto/); bcj 13:45 Pulse Ox 99% ; bcj 14:00 BP 138 / 73 (auto/); bcj 14:00 Pulse Ox 95% ; bcj 17:46 BP 151 / 82; Pulse 93; Resp 16; Temp 97.9(O); Pulse Ox 98% on R/A; Pain 0/10; ld5 11:43 Body Mass Index 27.26 (86.18 kg, 177.80 cm) lr2 MDM: 11:46 ECG WITH READING ER PHYS+CARDIAG ordered. EDMS 12:24 Aspirin Chewable Tablet 324 mg PO once ordered. pc 12:24 Contract Designer/Pulse Ox/q 30 min VS ordered. pc 12:24 IV Saline Lock ordered. pc 12:24 Rhythm Strip to chart ordered. pc 12:25 Basic Metabolic Profile Ordered. EDMS 12:25 CBC with Diff Ordered. EDMS 12:25 Cardiac Injury Profile Ordered. EDMS 12:25 Troponin Ordered. EDMS 12:26 portable chest Ordered. EDMS 12:32 LIPASE Ordered. EDMS 12:32 LIVER PROFILE Ordered. EDMS 12:32 REGULAR+DIET ordered. EDMS 12:45 Differential diagnosis: anxiety, gastroesophageal reflux disease (GERD), pancreatitis, pc unstable angina. Plan: labs, EKG, meds, imaging. The patient was medicated with aspirin in the Emergency Department. Test interpretation: EKG. 12:46 Financial registration complete. lg 13:03 CBC with Diff Reviewed. pc 13:03 Cardiac Injury Profile Reviewed. pc 13:03 Basic Metabolic Profile Reviewed. pc 13:03 Troponin Reviewed. pc 13:03 LIPASE Reviewed. pc 13:03 LIVER PROFILE Reviewed. pc 13:27 [facility] Payment Agreement was scanned into [employer] and attached to record. lg 14:08 Repeat EKG (put time details section) ordered. pc 14:13 Repeat EKG (put time details section) complete. deg 14:14 ECG WITH READING ER PHYS ordered. EDMS 14:36 Redraw CIP &Troponin (put time in details section) ordered. pc 15:12 CARDIAC MARKER PANEL Ordered. EDMS 16:30 CARDIAC MARKER PANEL Reviewed. pc 16:30 portable chest Reviewed. pc 16:32 Redraw CIP &Troponin (put time in details section) complete. bcj 16:39 Data reviewed: old medical records, vital signs, nurses notes, EKG(s), lab test pc results, all radiology studies and available results. Test interpretation: LAB - all labs as ordered have been reviewed, interpreted and considered in the overall management of the clinical presentation; X-RAY - interpreted by Radiologist and personally reviewed, 1 view chest no acute disease. 16:39 Test interpretation: EKG. pc 16:59 The patient has been re-examined and re-evaluated. The clinical presentation did not pc require any ED treatment or interventions. Physician consultation: Dr. Farhad Pickering was contacted at 17:00, regarding patient's condition, and advises the medications/treatment as provided. and agrees with the treatment provided and advises the discharge plans as outlined. Disposition: The historical points, examination findings, and any diagnostic results supporting the provided diagnosis, were discussed with the patient or legal guardian. The need for outpatient follow up with the provider listed on their discharge instructions was discussed. They were encouraged to return to [facility], or the nearest ED, if symptoms worsen/persist, or for any other questions/concerns. EC:45 Rate is 110 beats/min. Rhythm is regular, Sinus tachycardia. QRS [place] is Normal. [place] pc interval is normal. QRS interval is normal. QT interval is normal. No Q waves. T waves are Normal. No ST changes noted. Clinical impression: Sinus tachycardia. 16:39 Rate is 71 beats/min. Rhythm is regular, Normal Sinus Rhythm. QRS [place] is Normal. IN pc interval is normal. QRS interval is normal. QT interval is normal. No Q waves. T waves are Normal. No ST changes noted. Clinical impression: Normal Sinus Rhythm. Administered Medications: 12:28 Drug: Aspirin 324 mg [aspirin 81 mg chewable tablet (4 tabs)] Route: PO; srm Signatures: Dispatcher [employer] EDMelvin Javed MD MD pc Sheri Katz, Pearl Diver Unit deg Nima Perez, RN RN Ally Ratliff, Tato Reg Rachel GrimaldoRN RN Bryanna Francis RN The chart was reviewed and I authenticate all verbal orders and agree with the evaluation and treatment provided.Corrections: (The following items were deleted from the chart) 12:31 12:26 LIPASE+LAB ordered. EDMS EDMS 12:31 12:26 LIVER PROFILE+LAB ordered. EDMS EDMS 12:45 12:41 The patient's known risk factors for coronary artery disease include: a family pc history of coronary artery disease, pc 14:35 14:08 Redraw ABG (put time in details section) ordered. pc pc 14:38 14:14 ARTERIAL BLOOD GAS ordered. EDMS EDMS Attachments: 13:27 [facility] [place] lg Chart Complete MTDD
== END 2016-11-20 17:56 | disposition home or self-care (01) ==
LOC: M ED 11:40
DX: R07.9 Chest pain, unspecified (principal); F17.210 Nicotine dependence, cigarettes, uncomplicated; Z79.82 Long term (current) use of aspirin

== ENCOUNTER → 2017-02-15 | Outpatient (REF) | payer OTHER ==
[2017-02-20 09:15] LABS: ALBUMIN 3.97 GM/DL (3.29-5.55); ALBUMIN % 56.7 % (55.8-66.1); GAMMA GLOBULIN % 14.9 % (11.1-18.8)
== END ==
LOC: M LABDRAW1 15:21
PROVIDERS: ATTEND Orthopaedic Surgery
DX: M16.0 Bilateral primary osteoarthritis of hip (principal)

== ENCOUNTER → 2017-02-23 | Outpatient (CLI) | payer OTHER ==
--- NOTE | 2017-02-23 14:40 | REP ---
REASON: Generalized pain. COMPARISON: None. After the intravenous administration of 20.4 mCi of technetium-99m MDP a total body bone scan was obtained. There is degenerative type uptake seen in the shoulders, sternoclavicular joints, hips, knees, and left foot. IMPRESSION: Degenerative type uptake patterns as described above. There is no compelling evidence for metastatic disease. Signed by Abilio Paagn DO 02/23/2017 03:23 P
== END ==
LOC: M RAD 09:41
PROVIDERS: ATTEND Orthopaedic Surgery
DX: M16.0 Bilateral primary osteoarthritis of hip (principal)

== ENCOUNTER → 2017-10-19 | Outpatient (CLI) | payer OTHER | LOC: M PLARAD 07:39 | DX: M75.51 Bursitis of right shoulder (principal); M75.121 Complete rotator cuff tear or rupture of right shoulder, not specified as traumatic; M75.82 Other shoulder lesions, left shoulder; M19.012 Primary osteoarthritis, left shoulder | CPT/HCPCS: 73221 ==

== ENCOUNTER → 2018-02-01 | Outpatient (CLI) | payer OTHER ==
[~2018-02-01] MED LIST: ISOVUE-300 61% 50ML VIAL (Q9967) As Ordered
== END ==
LOC: M RADPRO 14:31
DX: A41.9 Sepsis, unspecified organism (principal); T81.4XXA Infection following a procedure, initial encounter; Z79.899 Other long term (current) drug therapy; Z87.891 Personal history of nicotine dependence; Y83.8 Other surgical procedures as the cause of abnormal reaction of the patient, or of later complication, without mention of misadventure at the time of the procedure
CPT/HCPCS: 36569

== ENCOUNTER → 2018-02-12 | Outpatient (REF) | payer OTHER ==
[2018-02-12 16:20] LABS: BASO # 0.1 10^3/uL (0.0-0.2); BASO % 1.1 % (0.0-1.0); EOS # 0.3 10^3/uL (0.0-0.50); EOS % 3.6 % (0.0-3.0); HEMATOCRIT 40.7 % (42.0-52.0); HEMOGLOBIN 13.7 g/dl (13.5-17.5); IMMATURE GRANULOCYTE % 0.6 % (0-3.0); LYMPH # 1.7 10^3/uL (1.5-4.5); LYMPH % 23.8 % (24.0-44.0); MEAN CORPUSCULAR HEMOGLOBIN 30.9 pg (27.0-33.0); MEAN CORPUSCULAR HGB CONC 33.7 g/dl (32.0-36.5); MEAN CORPUSCULAR VOLUME 91.9 fl (80.0-96.0); MONO # 0.6 10^3/uL (0.0-0.8); MONO % 8.6 % (0.0-5.0); NEUTROPHILS # 4.5 10^3/uL (1.8-7.7); NEUTROPHILS % 62.3 % (36.0-66.0); PLATELET COUNT, AUTOMATED 236 10^3/uL (150-450); RED BLOOD COUNT 4.43 10^6/uL (4.30-6.10); RED CELL DISTRIBUTION WIDTH 12.9 % (11.5-14.5); WHITE BLOOD COUNT 7.2 10^3/uL (4.0-10.0)
[2018-02-12 18:03] LABS: ERYTHROCYTE SEDIMENTATION RATE 8 mm/hr (0-20)
== END ==
LOC: M LAB REF 15:55
DX: B95.61 Methicillin susceptible Staphylococcus aureus infection as the cause of diseases classified elsewhere (principal)

== ENCOUNTER → 2018-02-18 | Outpatient (REF) | payer OTHER ==
[2018-02-18 18:37] LABS: BASO # 0.1 10^3/uL (0.0-0.2); EOS # 0.3 10^3/uL (0.0-0.50); EOS % 3.7 % (0.0-3.0); HEMATOCRIT 40.7 % (42.0-52.0); HEMOGLOBIN 13.9 g/dl (13.5-17.5); IMMATURE GRANULOCYTE % 0.1 % (0-3.0); LYMPH # 1.6 10^3/uL (1.5-4.5); LYMPH % 22.6 % (24.0-44.0); MEAN CORPUSCULAR HEMOGLOBIN 31.6 pg (27.0-33.0); MEAN CORPUSCULAR HGB CONC 34.2 g/dl (32.0-36.5); MEAN CORPUSCULAR VOLUME 92.5 fl (80.0-96.0); MONO # 0.6 10^3/uL (0.0-0.8); MONO % 8.9 % (0.0-5.0); NEUTROPHILS # 4.5 10^3/uL (1.8-7.7); NEUTROPHILS % 63.7 % (36.0-66.0); PLATELET COUNT, AUTOMATED 195 10^3/uL (150-450); RED CELL DISTRIBUTION WIDTH 13.2 % (11.5-14.5)
[2018-02-18 18:50] LABS: C REACTIVE PROTEIN QUANTITATIV 0.39 MG/DL (0.00-0.30)
[2018-02-18 19:11] LABS: ERYTHROCYTE SEDIMENTATION RATE 6 mm/hr (0-20)
== END ==
LOC: M LAB REF 12:22
DX: B95.61 Methicillin susceptible Staphylococcus aureus infection as the cause of diseases classified elsewhere (principal)

== ENCOUNTER → 2018-02-25 | Outpatient (REF) | payer OTHER ==
[2018-02-25 14:05] LABS: BASO # 0.1 10^3/uL (0.0-0.2); BASO % 0.8 % (0.0-1.0); EOS # 0.3 10^3/uL (0.0-0.50); EOS % 4.7 % (0.0-3.0); HEMOGLOBIN 14.5 g/dl (13.5-17.5); IMMATURE GRANULOCYTE % 0.5 % (0-3.0); LYMPH # 1.5 10^3/uL (1.5-4.5); LYMPH % 25.7 % (24.0-44.0); MEAN CORPUSCULAR HEMOGLOBIN 30.8 pg (27.0-33.0); MEAN CORPUSCULAR HGB CONC 33.7 g/dl (32.0-36.5); MEAN CORPUSCULAR VOLUME 91.3 fl (80.0-96.0); MONO # 0.6 10^3/uL (0.0-0.8); NEUTROPHILS # 3.5 10^3/uL (1.8-7.7); NEUTROPHILS % 58.3 % (36.0-66.0); PLATELET COUNT, AUTOMATED 186 10^3/uL (150-450); RED BLOOD COUNT 4.71 10^6/uL (4.30-6.10); RED CELL DISTRIBUTION WIDTH 13.4 % (11.5-14.5)
[2018-02-25 14:16] LABS: C REACTIVE PROTEIN QUANTITATIV < 0.30 MG/DL (0.00-0.30)
[2018-02-25 14:28] LABS: ERYTHROCYTE SEDIMENTATION RATE 4 mm/hr (0-20)
== END ==
LOC: M LAB REF 13:46
DX: B95.61 Methicillin susceptible Staphylococcus aureus infection as the cause of diseases classified elsewhere (principal)

== ENCOUNTER 2023-08-08 08:10 | Day surgery (SDC) | payer MEDICARE ==
[~2023-08-08] VITALS: Ht 180.3 cm; Wt 94.9 kg
[~2023-08-08 08:10] MED LIST changes: +AMLO1TAB25 PO; -ISOVUE-300 61% 50ML VIAL (Q9967) As Ordered; +NS 1,000 ML IV ONE
[2023-08-08] MEDS ORDERED: GLYCOPYRROLATE INJ 0.2 MG/ML 2 ML VIAL As Ordered ONE (09:10)
[2023-08-08] MEDS ORDERED: propofoL 200 MG/20 ML VIAL As Ordered ONE ×2 (09:10→09:28)
[2023-08-08 09:53] VITALS: TEMP 97
[2023-08-08 10:10] VITALS: BP 157/91; O2SAT 97
== END 2023-08-08 10:19 | disposition home or self-care (01) ==
LOC: M OPP 08:10
PROVIDERS: ATTEND Surgery
DX: Z12.11 Encounter for screening for malignant neoplasm of colon (principal); K63.5 Polyp of colon; K57.30 Diverticulosis of large intestine without perforation or abscess without bleeding; I10 Essential (primary) hypertension; Z79.899 Other long term (current) drug therapy; F17.210 Nicotine dependence, cigarettes, uncomplicated; Z90.49 Acquired absence of other specified parts of digestive tract